=== PATIENT | male | born 1955 | race Caucasian/White ===

== ENCOUNTER → 2016-06-30 | Outpatient (CLI) | payer MEDICARE, MEDICAID ==
[~2016-06-30] VITALS: Ht 167.6 cm; Wt 73.4 kg
[~2016-06-30] MED LIST: ABIL5TAB5 PO; BISAPOW4 PO; BONI150T PO; CALCTAB41 PO; COLA100C3 PO; DOCU60SY2 PO; FLEEENE4 PR; FLOM5CAP PO; KLON1TAB PO; LAMI1TAB7 PO; LIDOCAINE 2% INJ 100 MG/5 ML SDV (FOR ANES.) As Ordered ONE; MILKSUS PO; MIRA33504 PO; MULTCAP11 PO; PROPOFOL 200 MG/20 ML VIAL As Ordered ONE; SING10TA32 PO; TYLE325T5 PO; UROCTAB2 PO; ZOLO50TA PO; ZYPR10TA PO; [UNRECOGNIZED DRUG - CODE] PO
--- NOTE | 2016-06-30 08:47 | ROOR ---
Patient Name: Hola Connell Procedure Date: 06/30/2016 7:17 AM Date of : 1955 Age: 60 Room: [facility] Gender: Male Note Status: Finalized Procedure: Colonoscopy Indications: High risk colon cancer surveillance: Personal history of colonic polyps Providers: Harman Daly MD Referring MD: Kwan Ravi MD Requesting Provider: Medicines: Monitored Anesthesia Care Complications: No immediate complications. Estimated blood loss: Minimal. Procedure: Pre-Anesthesia Assessment: - Prior to the procedure, a History and Physical was performed, and patient medications and allergies were reviewed. The patient is unable to give consent secondary to the patient being legally incompetent to consent. The risks and benefits of the procedure and the sedation options and risks were discussed with the patient's guardian. All questions were answered and informed consent was obtained. Patient identification and proposed procedure were verified by the physician, the nurse and the anesthesiologist in the procedure room. Mental Status Examination: alert but confused. Airway Examination: normal oropharyngeal airway and neck mobility. Respiratory Examination: clear to auscultation. CV Examination: normal. Prophylactic Antibiotics: The patient does not require prophylactic antibiotics. Prior Anticoagulants: The patient has taken no previous anticoagulant or antiplatelet agents. ASA Grade Assessment: II - A patient with mild systemic disease. After reviewing the risks and benefits, the patient was deemed in satisfactory condition to undergo the procedure. The anesthesia plan was to use monitored anesthesia care (MAC). Immediately prior to administration of medications, the patient was re-assessed for adequacy to receive sedatives. The heart rate, respiratory rate, oxygen saturations, blood pressure, adequacy of pulmonary ventilation, and response to care were monitored throughout the procedure. The physical status of the patient was re-assessed after the procedure. The Colonoscope was introduced through the anus and advanced to the cecum, identified by appendiceal orifice and ileocecal valve. The colonoscopy was technically difficult and complex due to poor bowel prep with stool present, poor endoscopic visualization and significant looping. The patient tolerated the procedure well. The quality of the bowel preparation was poor. Findings: The perianal and digital rectal examinations were normal. A diminutive polyp was found in the cecum. The polyp was flat. The polyp was removed with a jumbo cold forceps. Resection and retrieval were complete. Estimated blood loss was minimal. A 3 to 5 mm polyp was found in the ascending colon. The polyp was semi-pedunculated. The polyp was removed with a hot snare. Resection and retrieval were complete. Estimated blood loss: none. A 3 to 5 mm polyp was found in the hepatic flexure. The polyp was pedunculated. The polyp was removed with a hot snare. Resection and retrieval were complete. Estimated blood loss: none. A 3 to 5 mm polyp was found in the descending colon. The polyp was semi-pedunculated. The polyp was removed with a hot snare. Resection and retrieval were complete. Estimated blood loss: none. A 15 mm polyp was found in the descending colon. The polyp was sessile. The polyp was removed with a hot snare. Polyp resection was incomplete. The resected tissue was retrieved. Estimated blood loss: 5 mL requiring treatment with placement of hemostatic clip(s). No additional abnormalities were found on retroflexion. Impression: - Preparation of the colon was poor. - One diminutive polyp in the cecum, removed with a jumbo cold forceps. Resected and retrieved. - One 3 to 5 mm polyp in the ascending colon, removed with a hot snare. Resected and retrieved. - One 3 to 5 mm polyp at the hepatic flexure, removed with a hot snare. Resected and retrieved. - One 3 to 5 mm polyp in the descending colon, removed with a hot snare. Resected and retrieved. - One 15 mm polyp in the descending colon, removed with a hot snare. Incomplete resection. Resected tissue retrieved. Recommendation: - Discharge patient to home (ambulatory). - Telephone my office for pathology results in 2 weeks. - Repeat colonoscopy in 1 year for surveillance after piecemeal polypectomy. Harman Daly MD Harman Daly MD 06/30/2016 8:46:55 AM This report has been signed electronically. Number of Addenda: 0 Note Initiated On: 06/30/2016 7:17 AM Estimated Blood Loss: Estimated blood loss was minimal.
[2016-06-30 09:10] VITALS: BP 119/70
== END | disposition home or self-care (01) ==
LOC: M OPP 06:42
PROVIDERS: ATTEND Surgery
DX: Z12.11 Encounter for screening for malignant neoplasm of colon (principal); D12.0 Benign neoplasm of cecum; D12.2 Benign neoplasm of ascending colon; D12.3 Benign neoplasm of transverse colon; D12.4 Benign neoplasm of descending colon; Z86.010 Personal history of colon polyps; K59.00 Constipation, unspecified; M25.9 Joint disorder, unspecified; M81.0 Age-related osteoporosis without current pathological fracture; Z87.828 Personal history of other (healed) physical injury and trauma; R13.10 Dysphagia, unspecified; R56.9 Unspecified convulsions; Z87.442 Personal history of urinary calculi; R31.9 Hematuria, unspecified; N40.0 Benign prostatic hyperplasia without lower urinary tract symptoms; Z88.8 Allergy status to other drugs, medicaments and biological substances; Z79.899 Other long term (current) drug therapy

== ENCOUNTER 2016-07-30 23:56 | Emergency (ER) | payer MEDICARE, MEDICAID ==
[~2016-07-30 23:56] MED LIST changes: -LIDOCAINE 2% INJ 100 MG/5 ML SDV (FOR ANES.) As Ordered ONE; -PROPOFOL 200 MG/20 ML VIAL As Ordered ONE
[2016-07-31] MEDS ORDERED: TETANUS/DIPHTHERIA TOX ADSORB ADULT 0.5ML SYR/VIAL (90714) IM ONE (00:30)
--- NOTE | 2016-07-31 01:10 | REPUSA ---
CLINICAL HISTORY: Trauma. TECHNIQUE: Multiple axial CT images were obtained through the brain without IV contrast material. COMMENTS: There is normal configuration of sella turcica. There are no intra or extra-axial collections. There is no mass effect or midline shift. There is no evidence of hematoma formation. No hydrocephalus is p resent. The ventricles are symmetrical. No abnormal calcifications are present. There is diffuse age-appropriate cerebellar and cerebral atrophy with proportionally dilated ventricl es and cortical sulci. There are bilateral periventricular and subcortical white matter hypolucencies compatible with mild c hronic microvascular disease. Otherwise, no significant focal abnormalities are seen either in the posterior fossa or supratentoria l compartment. Air-fluid level in the left sphenoid sinus. IMPRESSION: 1. Age-appropriate cerebellar and cerebral atrophy. 2. Mild chronic microvascular disease. 3. No evidence of acute intracranial pathology. Thank you for your kind referral of this patient.
--- NOTE | 2016-07-31 01:10 | REPUSA ---
HISTORY: Trauma. TECHNIQUE: Computerized tomography of the facial bones without the use of intravenous contrast materi al obtained in axial and coronal planes. COMMENTS: There is no fracture or dislocation. Air-fluid level in the left sphenoid sinus. Periorbital soft tissues are intact. The globes of the eyes disclose bilaterally symmetrical size and shape and normal appearance of the v arious layers. The intraocular lenses and the vitreous are unremarkable. The orbits show bilaterally symmetrical shape. The orbital fat and the intraorbital portions of the optic nerves are bilaterally symmetric and normal in size, shape and course. The extraocular muscles are unremarkable. IMPRESSION: No fracture. Air-fluid level in the left sphenoid sinus. Thank you for your kind referral of this patient.
[2016-07-31] MEDS ORDERED: DERMABOND TOPICAL SKIN ADHESIVE TOP ONE (01:45)
[2016-07-31 02:12] VITALS: BP 173/91
--- NOTE | 2016-07-31 07:45 | REP ---
Clinical: Trauma . Comparison: 08/10/2015 . Findings: The mediastinum and cardiac silhouette are stable and within normal limits for portable technique. The lung giles demonstrate chronic changes without acute consolidation, effusion, or pneumothorax. Skeletal structures are intact with degenerative changes noted to the thoracic spine and bilateral shoulders. Impression: Stable chest x-ray. No obvious acute cardiopulmonary process. Signed by Rob Shea MD 07/31/2016 07:37 A
--- NOTE | 2016-07-31 07:47 | REP ---
Clinical: Trauma. Technique: Single neutral view of the right shoulder. Comparison: 12/04/2007. Findings: Age-related and post traumatic arthritic degenerative changes are appreciated involving the shoulder and predominantly the visualized humerus and glenoid. No obvious acute fracture or dislocation. Impression: Chronic changes similar to prior examination. No obvious acute fracture or dislocation noted on single view. Signed by Rob Shea MD 07/31/2016 07:38 A
== END 2016-07-31 02:19 | disposition home or self-care (01) ==
LOC: EDBD 23:56 → M ED 07-31 01:09
DX: S01.81XA Laceration without foreign body of other part of head, initial encounter (principal); M19.011 Primary osteoarthritis, right shoulder; W19.XXXA Unspecified fall, initial encounter; Y92.198 Other place in other specified residential institution as the place of occurrence of the external cause; Y93.89 Activity, other specified; Y99.8 Other external cause status; G40.909 Epilepsy, unspecified, not intractable, without status epilepticus; F79 Unspecified intellectual disabilities; Z79.899 Other long term (current) drug therapy; Z88.8 Allergy status to other drugs, medicaments and biological substances

== ENCOUNTER 2016-11-23 20:32 | Emergency (ER) | payer MEDICARE, MEDICAID ==
[~2016-11-23 20:32] MED LIST changes: +ABIL1TAB11 PO; -ABIL5TAB5 PO; -COLA100C3 PO; +COLA100C5 PO
[2016-11-23 20:54] VITALS: BP 180/87
[2016-11-23] MEDS ORDERED: KETOROLAC 60 MG/2 ML VIAL (J1885) IM ONE (21:45)
--- NOTE | 2016-11-24 08:03 | REP ---
Right ribs and PA chest: Right ribs four views: There is no rib fracture or other rib abnormality. PA chest: Comparison is 07/31/2016. There is no pneumothorax, hemothorax or pulmonary. Lung giles are clear and unchanged. Cardiac size is normal. The luis manuel, mediastinum, and bony thorax are unremarkable. Impression: Negative PA chest. Signed by Crispin Quan MD 11/24/2016 07:55 A
== END 2016-11-23 22:11 | disposition home or self-care (01) ==
LOC: M ED 20:32 → EDBD 20:32 → M ED 22:11
DX: S20.212A Contusion of left front wall of thorax, initial encounter (principal); W01.0XXA Fall on same level from slipping, tripping and stumbling without subsequent striking against object, initial encounter; Y92.198 Other place in other specified residential institution as the place of occurrence of the external cause; Y93.01 Activity, walking, marching and hiking; Y99.8 Other external cause status; G40.909 Epilepsy, unspecified, not intractable, without status epilepticus; K21.9 Gastro-esophageal reflux disease without esophagitis; F81.9 Developmental disorder of scholastic skills, unspecified; R26.89 Other abnormalities of gait and mobility; Z88.8 Allergy status to other drugs, medicaments and biological substances; Z79.899 Other long term (current) drug therapy
CPT/HCPCS: 71101; 96372; 99282; J1885

== ENCOUNTER 2017-03-03 20:29 | Emergency (ER) | payer MEDICARE, MEDICAID ==
[2017-03-03] MEDS ORDERED: LIDOCAINE 1% MDV 20ML VIAL (20:30)
== END 2017-03-03 21:29 | disposition home or self-care (01) ==
LOC: M ED 20:29
DX: S01.119A Laceration without foreign body of unspecified eyelid and periocular area, initial encounter (principal); W01.198A Fall on same level from slipping, tripping and stumbling with subsequent striking against other object, initial encounter; Y92.10 Unspecified residential institution as the place of occurrence of the external cause; J45.909 Unspecified asthma, uncomplicated; Z79.899 Other long term (current) drug therapy; Z88.8 Allergy status to other drugs, medicaments and biological substances
CPT/HCPCS: 12013

== ENCOUNTER 2017-06-18 13:35 | Emergency (ER) | payer MEDICARE, MEDICAID ==
[2017-06-18] MEDS: LIDOCAINE 2% W/EPIN INJ 20ML **PRES FREE INJ (14:40)
== END 2017-06-18 15:27 | disposition home or self-care (01) ==
LOC: M ED 13:35
DX: S01.112A Laceration without foreign body of left eyelid and periocular area, initial encounter (principal); S00.01XA Abrasion of scalp, initial encounter; R04.0 Epistaxis; W01.0XXA Fall on same level from slipping, tripping and stumbling without subsequent striking against object, initial encounter; Y92.481 Parking lot as the place of occurrence of the external cause; Y93.9 Activity, unspecified; Z79.899 Other long term (current) drug therapy; Z88.8 Allergy status to other drugs, medicaments and biological substances
CPT/HCPCS: 70450

== ENCOUNTER 2017-06-28 16:24 | Emergency (ER) | payer MEDICARE, MEDICAID ==
[2017-06-28] MEDS: ASPIRIN 81 MG CHEW TABLET PO (17:00)
[2017-06-28 17:43] LABS: BASO % 0.1 % (0.0-1.0); EOS # 0.1 10^3/uL (0.0-0.50); HEMATOCRIT 36.9 % (42.0-52.0); HEMOGLOBIN 12.3 g/dl (13.5-17.5); IMMATURE GRANULOCYTE % 0.4 % (0-3.0); LYMPH % 9.9 % (24.0-44.0); MEAN CORPUSCULAR HEMOGLOBIN 31.2 pg (27.0-33.0); MEAN CORPUSCULAR HGB CONC 33.3 g/dl (32.0-36.5); MEAN CORPUSCULAR VOLUME 93.7 fl (80.0-96.0); MONO # 1.1 10^3/uL (0.0-0.8); MONO % 10.8 % (0.0-5.0); NEUTROPHILS # 8.2 10^3/uL (1.8-7.7); NEUTROPHILS % 77.8 % (36.0-66.0); PLATELET COUNT, AUTOMATED 252 10^3/uL (150-450); RED BLOOD COUNT 3.94 10^6/uL (4.30-6.10); RED CELL DISTRIBUTION WIDTH 12.8 % (11.5-14.5); WHITE BLOOD COUNT 10.5 10^3/uL (4.0-10.0)
[2017-06-28 18:26] LABS: ANION GAP 4 MEQ/L (8-16); BLOOD UREA NITROGEN 15 MG/DL (7-18); CALCIUM LEVEL 9.2 MG/DL (8.8-10.2); CARBON DIOXIDE LEVEL 29 MEQ/L (21-32); CHLORIDE LEVEL 104 MEQ/L (98-107); CK-MB VALUE MASS < 1.0 NG/ML (<3.6); CPK CREATINE PHOSPHOKINASE 59 U/L (39-308); CREATININE FOR GFR 0.78 MG/DL (0.70-1.30); GLOMERULAR FILTRATION RATE > 60.0 (>49); GLUCOSE, FASTING 96 MG/DL (70-100); LIPASE 83 U/L (73-393); MB/CK RELATIVE INDEX 1.69 (< OR =4); NT-PRO BNP 133 PG/ML (<125); POTASSIUM SERUM 4.1 MEQ/L (3.5-5.1); SODIUM LEVEL 137 MEQ/L (136-145); TROPONIN I < 0.02 NG/ML (< 0.10)
[2017-06-28 22:21] LABS: CK-MB VALUE MASS 1.1 NG/ML (<3.6); CPK CREATINE PHOSPHOKINASE 40 U/L (39-308); MB/CK RELATIVE INDEX 2.75 (< OR =4); TROPONIN I < 0.02 NG/ML (< 0.10)
== END 2017-06-28 22:31 | disposition home or self-care (01) ==
LOC: M ED 16:24
DX: R07.89 Other chest pain (principal); I45.10 Unspecified right bundle-branch block; Z88.8 Allergy status to other drugs, medicaments and biological substances; N40.0 Benign prostatic hyperplasia without lower urinary tract symptoms; R56.9 Unspecified convulsions; Z79.899 Other long term (current) drug therapy
CPT/HCPCS: 71045

== ENCOUNTER 2017-07-17 20:12 | Emergency (ER) | payer MEDICARE, MEDICAID ==
[2017-07-17] MEDS: LIDOCAINE W/EPINEPHRINE 1% 20ML VIAL SC (21:15)
== END 2017-07-17 22:32 | disposition home or self-care (01) ==
LOC: M ED 20:12
DX: S01.81XA Laceration without foreign body of other part of head, initial encounter (principal); S40.012A Contusion of left shoulder, initial encounter; W01.10XA Fall on same level from slipping, tripping and stumbling with subsequent striking against unspecified object, initial encounter; Y92.9 Unspecified place or not applicable; Y93.9 Activity, unspecified; Y99.9 Unspecified external cause status; M85.812 Other specified disorders of bone density and structure, left shoulder; F79 Unspecified intellectual disabilities; Z79.899 Other long term (current) drug therapy; Z88.8 Allergy status to other drugs, medicaments and biological substances
CPT/HCPCS: 73030

== ENCOUNTER 2017-11-02 12:10 | Day surgery (SDC) | payer MEDICARE, MEDICAID | END 2017-11-02 15:10 | disposition home or self-care (01) | LOC: M OPP 12:10 | DX: Z09 Encounter for follow-up examination after completed treatment for conditions other than malignant neoplasm (principal); D49.0 Neoplasm of unspecified behavior of digestive system; Z86.010 Personal history of colon polyps; D12.3 Benign neoplasm of transverse colon; D12.2 Benign neoplasm of ascending colon; K64.8 Other hemorrhoids; K63.89 Other specified diseases of intestine; F70 Mild intellectual disabilities; K59.00 Constipation, unspecified; K21.9 Gastro-esophageal reflux disease without esophagitis; R12 Heartburn; G82.50 Quadriplegia, unspecified; F41.9 Anxiety disorder, unspecified; F32.9 Major depressive disorder, single episode, unspecified; R26.89 Other abnormalities of gait and mobility; M19.90 Unspecified osteoarthritis, unspecified site; M81.0 Age-related osteoporosis without current pathological fracture; F63.9 Impulse disorder, unspecified; R56.9 Unspecified convulsions; R39.89 Other symptoms and signs involving the genitourinary system; Z88.8 Allergy status to other drugs, medicaments and biological substances; Z79.899 Other long term (current) drug therapy; Z80.3 Family history of malignant neoplasm of breast; Z80.6 Family history of leukemia | CPT/HCPCS: 45385 ==

== ENCOUNTER 2018-01-02 12:47 | Emergency (ER) | payer MEDICARE, MEDICAID ==
[2018-01-02] MEDS: NORCO, ANEXSIA 5/325MG TABLET (HYDROcodone/ACETAMINOPHEN) PO (13:43)
== END 2018-01-02 16:37 | disposition home or self-care (01) ==
LOC: M ED 12:47
DX: S00.03XA Contusion of scalp, initial encounter (principal); T14.8XXA Other injury of unspecified body region, initial encounter; W19.XXXA Unspecified fall, initial encounter; Y92.099 Unspecified place in other non-institutional residence as the place of occurrence of the external cause; Y93.9 Activity, unspecified; Y99.9 Unspecified external cause status; M47.812 Spondylosis without myelopathy or radiculopathy, cervical region; M25.78 Osteophyte, vertebrae; Z79.899 Other long term (current) drug therapy; Z88.8 Allergy status to other drugs, medicaments and biological substances
CPT/HCPCS: 72110

== ENCOUNTER → 2018-01-18 | Outpatient (CLI) | payer MEDICARE, MEDICAID ==
[2018-01-18 09:01] LABS: EOS # 0.2 10^3/uL (0.0-0.50); EOS % 1.9 % (0.0-3.0); HEMATOCRIT 39.5 % (42.0-52.0); HEMOGLOBIN 12.8 g/dl (13.5-17.5); IMMATURE GRANULOCYTE % 0.5 % (0-3.0); LYMPH # 1.6 10^3/uL (1.5-4.5); LYMPH % 20.3 % (24.0-44.0); MEAN CORPUSCULAR HEMOGLOBIN 31.6 pg (27.0-33.0); MEAN CORPUSCULAR HGB CONC 32.4 g/dl (32.0-36.5); MEAN CORPUSCULAR VOLUME 97.5 fl (80.0-96.0); MONO # 0.6 10^3/uL (0.0-0.8); NEUTROPHILS # 5.7 10^3/uL (1.8-7.7); NEUTROPHILS % 70.3 % (36.0-66.0); PLATELET COUNT, AUTOMATED 296 10^3/uL (150-450); RED BLOOD COUNT 4.05 10^6/uL (4.30-6.10); RED CELL DISTRIBUTION WIDTH 12.9 % (11.5-14.5)
[2018-01-18 09:33] LABS: CHOLESTEROL LEVEL 176 MG/DL (<200); CHOLESTEROL RISK RATIO 3.744 (<5); HDL CHOLESTEROL 47 MG/DL (>40); LDL CHOLESTEROL 81 MG/DL (<100); NON-HDL-C 129 MG/DL; TRIGLYCERIDES LEVEL 240 MG/DL (<150)
[2018-01-18 09:41] LABS: PROLACTIN 8.6 NG/ML (2.1-17.7)
[2018-01-18 11:30] LABS: ESTIMATED AVERAGE GLUCOSE 111 MG/DL (60-110); HEMOGLOBIN A1c 5.5 %
== END ==
LOC: M LAB 07:42
DX: F63.81 Intermittent explosive disorder (principal); Z79.899 Other long term (current) drug therapy
CPT/HCPCS: 84146

== ENCOUNTER → 2018-05-05 | Outpatient (REF) | payer MEDICARE, MEDICAID ==
[~2018-05-05] MED LIST changes: +CVS8.6TA5 PO; +FLOM0.4C39 PO; -FLOM5CAP PO; +HYDR-3363 PO; +MILK120011 PO; -MILKSUS PO; +MULT1TAB18 PO; +NAPR-50 PO; +TYLE500T78 PO; -[UNRECOGNIZED DRUG - CODE] PO
[2018-05-05 18:27] LABS: FOLATE 20.8 NG/ML
== END ==
LOC: M LAB REF 17:23
PROVIDERS: ATTEND Family Medicine
DX: D64.9 Anemia, unspecified (principal)

== ENCOUNTER → 2018-09-18 | Outpatient (REF) | payer MEDICARE, MEDICAID ==
[~2018-09-18] MED LIST changes: -BONI150T PO; +BONI1TAB PO; -CVS8.6TA5 PO; -NAPR-50 PO; +NAPR-837 PO; +SENN-85 PO
[2018-09-18 13:13] LABS: BASO % 0.4 % (0.0-1.0); EOS # 0.1 10^3/uL (0.0-0.50); EOS % 0.6 % (0.0-3.0); HEMATOCRIT 38.9 % (42.0-52.0); HEMOGLOBIN 12.6 g/dl (13.5-17.5); LYMPH # 1.8 10^3/uL (1.5-4.5); LYMPH % 19.7 % (24.0-44.0); MEAN CORPUSCULAR HEMOGLOBIN 30.8 pg (27.0-33.0); MEAN CORPUSCULAR HGB CONC 32.4 g/dl (32.0-36.5); MEAN CORPUSCULAR VOLUME 95.1 fl (80.0-96.0); MONO # 0.8 10^3/uL (0.0-0.8); MONO % 8.7 % (0.0-5.0); NEUTROPHILS # 6.5 10^3/uL (1.8-7.7); NEUTROPHILS % 70.3 % (36.0-66.0); PLATELET COUNT, AUTOMATED 305 10^3/uL (150-450); RED BLOOD COUNT 4.09 10^6/uL (4.30-6.10); WHITE BLOOD COUNT 9.3 10^3/uL (4.0-10.0)
[2018-09-18 13:48] LABS: ALBUMIN 3.8 GM/DL (3.2-5.2); ALT/SGPT 24 U/L (12-78); BILIRUBIN,TOTAL 0.4 MG/DL (0.2-1.0); BLOOD UREA NITROGEN 14 MG/DL (7-18); CALCIUM LEVEL 9.7 MG/DL (8.8-10.2); CARBON DIOXIDE LEVEL 29 MEQ/L (21-32); CHLORIDE LEVEL 104 MEQ/L (98-107); CREATININE FOR GFR 0.79 MG/DL (0.70-1.30); GLOMERULAR FILTRATION RATE > 60.0 (>49); GLUCOSE, FASTING 86 MG/DL (70-100); POTASSIUM SERUM 4.3 MEQ/L (3.5-5.1); SODIUM LEVEL 140 MEQ/L (136-145); TOTAL PROTEIN 7.7 GM/DL (6.4-8.2)
== END ==
LOC: M LABNEURO 10:57
PROVIDERS: ATTEND Psychiatry & Neurology Neurology
DX: R56.9 Unspecified convulsions (principal)

== ENCOUNTER 2018-12-19 09:42 | Emergency (ER) | payer MEDICARE, MEDICAID ==
--- NOTE | 2018-12-19 11:03 | REP ---
CT brain: 12/19/2018. Indication: Head trauma. Comparison: 01/02/2019. Technique: Unenhanced axial images of the brain were obtained from skull base to vertex. Findings: There is no acute intracranial hemorrhage, acute cortical infarction, mass effect, hydrocephalus or acute calvarial fracture. Mild diffuse volume loss is present. 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 Impression: No acute intracranial process. Electronically Signed by Isac Sykes DO 12/19/2018 10:55 A
--- NOTE | 2018-12-19 11:11 | REP ---
CT cervical spine: 12/19/2018. Indication: Cervical spine trauma. Comparison: 01/02/2019. Findings: There is no acute fracture, subluxation or dislocation. There is exaggeration of the cervical lordosis. Multilevel degenerative changes are present with the greatest narrowing of the spinal canal at C3/C4 and C4/C5 with flattening of the ventral cord. There is a subcentimeter lucency within the superior aspect of C5 along the superior endplate most likely representing a cyst. Stable. There is no hemorrhage within the spinal canal. Impression: No acute post traumatic injuries of the cervical spine. Electronically Signed by Isac Sykes DO 12/19/2018 11:02 A
--- NOTE | 2018-12-19 11:43 | REP ---
Left shoulder: Three views. History: Injury in a fall. Comparison left shoulder radiographs are from July 17, 2017. Findings: The left glenohumeral and acromioclavicular joints are normally aligned. No fracture is seen. There is mild AC joint spurring. This is unchanged. Periarticular soft tissues are unremarkable. There is no visible fracture or subluxation. Impression: Mild AC joint spurring. No fracture or subluxation seen. Electronically Signed by Chidi Meek MD 12/19/2018 06:44 P
--- NOTE | 2018-12-19 11:45 | REP ---
Pelvis right hip: Three views. History: Injury in a fall. Findings: AP view of the pelvis shows an intact bony pelvic ring. The patient is rotated somewhat to the left. There is osteoarthritis of the hips bilaterally but no hip fracture is appreciated. There is also tendon insertion site spurring on the greater and lesser trochanters. Degenerative disc disease is seen at L4-5 in the lumbar spine. The bowel gas pattern is unremarkable. AP and frog-leg views of the right hip show osteoarthritis and trochanteric tendon insertion site spurring. Impression: No acute bony abnormality. Electronically Signed by Chidi Meek MD 12/19/2018 06:44 P
[2018-12-19] MEDS ORDERED: ACETAMINOPHEN TAB 650MG DOSE (2X325MG) PO ONE (12:45)
[2018-12-19 12:51] VITALS: BP 167/81
== END 2018-12-19 13:07 | disposition home or self-care (01) ==
LOC: EDBD 09:42 → M ED 09:42
DX: S70.01XA Contusion of right hip, initial encounter (principal); S40.012A Contusion of left shoulder, initial encounter; X58.XXXA Exposure to other specified factors, initial encounter; Y92.091 Bathroom in other non-institutional residence as the place of occurrence of the external cause; Y93.89 Activity, other specified; Y99.9 Unspecified external cause status; N40.0 Benign prostatic hyperplasia without lower urinary tract symptoms; R56.9 Unspecified convulsions; Z79.899 Other long term (current) drug therapy; Z88.8 Allergy status to other drugs, medicaments and biological substances

== ENCOUNTER → 2019-03-23 | Outpatient (CLI) | payer MEDICARE, MEDICAID ==
--- NOTE | 2019-03-23 21:00 | REP ---
COOKIE SWALLOW The procedure was performed under the direct supervision of Dr. Meek. The procedure was performed with Merissa Bell from speech pathology present. 5 ml aliquots of thin, pudding, mixed fruit, nectar, honey and puree consistency barium was administered. There is laryngeal penetration with all consistency barium except mixed fruit. The detailed report of this examination will be provided by speech pathology. 1.4 minutes of fluoroscopy time was utilized for this procedure. Electronically Signed by ESTEFANI Banda 03/23/2019 03:33 P Electronically Signed by Chidi Meek MD 03/23/2019 08:43 P
== END ==
LOC: M ST 13:54
PROVIDERS: ATTEND Internal Medicine
DX: R13.10 Dysphagia, unspecified (principal)

== ENCOUNTER → 2019-04-03 | Outpatient (CLI) | payer MEDICARE, MEDICAID ==
--- NOTE | 2019-04-04 08:29 | REP ---
RIGHT HAND THREE VIEWS: Three views of the right hand performed. The study is extremely limited as the fingers are in a flexed position and the patient is unable to straightened the 2nd through 5th digits. No definite fracture or dislocation is seen. Electronically Signed by Crispin Silva MD 04/04/2019 10:45 P
== END ==
LOC: M ADAMS 18:23
PROVIDERS: ATTEND Nurse Practitioner Family
DX: M79.641 Pain in right hand (principal)

== ENCOUNTER → 2020-03-26 | Outpatient (CLI) | payer MEDICARE, MEDICAID ==
[~2020-03-26] MED LIST changes: +ACET-841 PO; +CALC600C3 PO; +INGR80CA PO; +MIRA3350 PO; +VITMTA PO; +XALA0.007 OU
== END ==
LOC: M LABSMTC 11:16
PROVIDERS: ATTEND Anesthesiology
DX: Z01.812 Encounter for preprocedural laboratory examination (principal); Z20.828 Contact with and (suspected) exposure to other viral communicable diseases

== ENCOUNTER → 2020-05-14 | Outpatient (CLI) | payer MEDICARE, MEDICAID | LOC: M LABSMTC 10:52 | PROVIDERS: ATTEND Anesthesiology | DX: Z01.812 Encounter for preprocedural laboratory examination (principal); Z20.822 Contact with and (suspected) exposure to COVID-19 ==

== ENCOUNTER 2020-05-19 07:56 | Day surgery (SDC) | payer MEDICARE, MEDICAID ==
[~2020-05-19] VITALS: Ht 167.6 cm; Wt 73.0 kg
[~2020-05-19 07:56] MED LIST changes: +NS 1,000 ML IV ONE
[2020-05-19] MEDS ORDERED: LIDOCAINE 2% 100MG/5ML SDV (FOR ANES.) As Ordered ONE (08:44)
[2020-05-19] MEDS ORDERED: propofoL 500 MG/50 ML VIAL As Ordered ONE (08:44)
--- NOTE | 2020-05-19 09:00 | ROOR ---
Patient Name: Hola Connell Procedure Date: 05/19/2020 8:39 AM Date of : 1955 Age: 64 Room: [facility] Gender: Male Note Status: Finalized Procedure: Colonoscopy to 50 cms-POOR PREP Indications: High risk colon cancer surveillance: Personal history of colonic polyps, Last colonoscopy: 2014 Providers: Sameer Lundberg MD Referring MD: Kwan Ravi MD Requesting Provider: Medicines: Monitored Anesthesia Care Complications: No immediate complications. Procedure: Pre-Anesthesia Assessment: - The heart rate, respiratory rate, oxygen saturations, blood pressure, adequacy of pulmonary ventilation, and response to care were monitored throughout the procedure. The Colonoscope was introduced through the anus with the intention of advancing to the cecum. The scope was advanced to the sigmoid colon before the procedure was aborted. Medications were given. The colonoscopy was performed without difficulty. The patient tolerated the procedure well. The quality of the bowel preparation was inadequate. Findings: The perianal and digital rectal examinations were normal. A large amount of stool was found in the rectum, in the recto-sigmoid colon and in the descending colon, making visualization difficult. The entire examined colon appeared normal. Impression: - Preparation of the colon was inadequate. - Stool in the rectum, in the recto-sigmoid colon and in the descending colon. - The entire examined colon is normal. - No specimens collected. Recommendation: - Patient has a contact number available for emergencies. The signs and symptoms of potential delayed complications were discussed with the patient. Return to normal activities tomorrow. Written discharge instructions were provided to the patient. - Discharge patient to home. - Resume previous diet. - Repeat colonoscopy at appointment to be scheduled because the bowel preparation was poor. - Return to referring physician. - The findings and recommendations were discussed with the patient. Procedure Code(s): --- Professional --- G0105, 53, Colorectal cancer screening; colonoscopy on individual at high risk Diagnosis Code(s): --- Professional --- Z86.010, Personal history of colonic polyps CPT copyright 2019 [employer]. All rights reserved. The codes documented in this report are preliminary and upon glass bulb machine adjuster review may be revised to meet current compliance requirements. Sameer Lundberg MD Sameer Lundberg MD 05/19/2020 8:59:44 AM Electronically signed by Sameer Lundberg MD Number of Addenda: 0 Note Initiated On: 05/19/2020 8:39 AM Estimated Blood Loss: Estimated blood loss: none.
[2020-05-19 09:20] VITALS: BP 220/114
== END 2020-05-19 09:35 | disposition home or self-care (01) ==
LOC: M OPP 07:56
PROVIDERS: ATTEND Internal Medicine Gastroenterology
DX: Z12.11 Encounter for screening for malignant neoplasm of colon (principal); Z86.010 Personal history of colon polyps; Z79.899 Other long term (current) drug therapy; Z88.8 Allergy status to other drugs, medicaments and biological substances

== ENCOUNTER → 2020-07-23 | Outpatient (CLI) | payer MEDICARE, MEDICAID ==
[~2020-07-23] MED LIST changes: -NS 1,000 ML IV ONE
== END ==
LOC: M LABSMTC 10:28
PROVIDERS: ATTEND Anesthesiology
DX: Z01.818 Encounter for other preprocedural examination (principal); Z11.59 Encounter for screening for other viral diseases

== ENCOUNTER 2020-07-28 07:51 | Day surgery (SDC) | payer MEDICARE, MEDICAID ==
[~2020-07-28] VITALS: Ht 167.6 cm; Wt 73.5 kg
[~2020-07-28 07:51] MED LIST changes: +NS 1,000 ML IV ONE
[2020-07-28] MEDS ORDERED: LIDOCAINE 2% 100MG/5ML SDV (FOR ANES.) As Ordered ONE (09:00)
[2020-07-28] MEDS ORDERED: propofoL 500 MG/50 ML VIAL As Ordered ONE (09:00)
--- NOTE | 2020-07-28 09:24 | ROOR ---
Patient Name: Hola Connell Procedure Date: 07/28/2020 8:56 AM Date of : 1955 Age: 64 Room: [facility] Gender: Male Note Status: Finalized Procedure: Total Colonoscopy to Cecum Indications: High risk colon cancer surveillance: Personal history of colonic polyps, Last colonoscopy: 2014 Providers: Sameer Lundberg MD Referring MD: Kwan Ravi MD Requesting Provider: Medicines: Monitored Anesthesia Care Complications: No immediate complications. Procedure: Pre-Anesthesia Assessment: - The heart rate, respiratory rate, oxygen saturations, blood pressure, adequacy of pulmonary ventilation, and response to care were monitored throughout the procedure. The Colonoscope was introduced through the anus and advanced to the cecum, identified by appendiceal orifice and ileocecal valve. The colonoscopy was performed without difficulty. The patient tolerated the procedure well. The quality of the bowel preparation was poor. Findings: The perianal and digital rectal examinations were normal. Extensive amounts of stool was found in the entire colon, interfering with visualization. Lavage of the area was performed, resulting in incomplete clearance with continued poor visualization. The exam was otherwise without abnormality. Impression: - Preparation of the colon was poor. - Stool in the entire examined colon. - The examination was otherwise normal. - No specimens collected. - The examination was otherwise normal. Recommendation: - Patient has a contact number available for emergencies. The signs and symptoms of potential delayed complications were discussed with the patient. Return to normal activities tomorrow. Written discharge instructions were provided to the patient. - Discharge patient to home. - Continue present medications. - Repeat colonoscopy in 3 years for surveillance. - Return to referring physician. - The findings and recommendations were discussed with the patient's family. Procedure Code(s): --- Professional --- G0105, Colorectal cancer screening; colonoscopy on individual at high risk Diagnosis Code(s): --- Professional --- Z86.010, Personal history of colonic polyps CPT copyright 2019 [employer]. All rights reserved. The codes documented in this report are preliminary and upon professional fee coder review may be revised to meet current compliance requirements. Sameer Lundberg MD Sameer Lundberg MD 07/28/2020 9:23:31 AM Electronically signed by Sameer Lundberg MD Number of Addenda: 0 Note Initiated On: 07/28/2020 8:56 AM Estimated Blood Loss: Estimated blood loss: none.
[2020-07-28 09:50] VITALS: BP 149/77
== END 2020-07-28 10:14 | disposition home or self-care (01) ==
LOC: M OPP 07:51
PROVIDERS: ATTEND Internal Medicine Gastroenterology
DX: Z12.11 Encounter for screening for malignant neoplasm of colon (principal); Z86.010 Personal history of colon polyps; M19.90 Unspecified osteoarthritis, unspecified site; M81.0 Age-related osteoporosis without current pathological fracture; Z88.8 Allergy status to other drugs, medicaments and biological substances; Z79.899 Other long term (current) drug therapy

== ENCOUNTER → 2020-08-08 | Outpatient (CLI) | payer MEDICARE, MEDICAID ==
[~2020-08-08] MED LIST changes: -NS 1,000 ML IV ONE
--- NOTE | 2020-08-08 15:44 | REP ---
INDICATION: R13.10 dysphagia. COMPARISON: None. TECHNIQUE: The procedure was performed by Pauline Hidalgo [facility], under the direct supervision of Dr. Silva. The procedure was performed with Torrie Thomas from speech pathology present. 5 ml aliquots of thin, pudding, soft food, nectar thick and honey thick consistency barium was administered. FINDINGS: Both penetration and aspiration were visualized during the exam. The detailed report of this examination will be provided by speech pathology. IMPRESSION: Penetration and aspiration were visualized during the exam, a detailed report will be provided by speech pathology. 3.8 minutes of fluoroscopy time was utilized for this procedure. Some fluoroscopic images are performed with last image hold technology. These images require no additional radiation <Electronically signed by Pauline Hidalgo > 08/08/20 [id number] <Electronically signed by Crispin Silva > 08/08/20 [id number]
== END ==
LOC: M ST 12:56
PROVIDERS: ATTEND Family Medicine
DX: R13.10 Dysphagia, unspecified (principal)

== ENCOUNTER → 2020-08-25 | Outpatient (REF) | payer MEDICARE, MEDICAID ==
[2020-08-25 12:51] LABS: BASO % 0.6 % (0.0-1.0); EOS # 0.1 10^3/uL (0.0-0.5); EOS % 1.6 % (0.0-3.0); HEMATOCRIT 40.6 % (42.0-52.0); LYMPH # 1.1 10^3/uL (1.5-5.0); LYMPH % 22.8 % (24.0-44.0); MEAN CORPUSCULAR HEMOGLOBIN 31.1 pg (27.0-33.0); MEAN CORPUSCULAR VOLUME 97.1 fl (80.0-96.0); MONO # 0.3 10^3/uL (0.0-0.8); MONO % 5.3 % (2.0-8.0); NEUTROPHILS # 3.4 10^3/uL (1.5-8.5); NEUTROPHILS % 69.3 % (36.0-66.0); PLATELET COUNT, AUTOMATED 257 10^3/uL (150-450); RED BLOOD COUNT 4.18 10^6/uL (4.30-6.10); WHITE BLOOD COUNT 4.9 10^3/uL (4.0-10.0)
[2020-08-25 13:18] LABS: ALBUMIN 3.7 GM/DL (3.2-5.2); ALT/SGPT 22 U/L (12-78); BILIRUBIN,TOTAL 0.3 MG/DL (0.2-1.0); BLOOD UREA NITROGEN 14 MG/DL (7-18); CALCIUM LEVEL 9.3 MG/DL (8.8-10.2); CARBON DIOXIDE LEVEL 30 MEQ/L (21-32); CHLORIDE LEVEL 108 MEQ/L (98-107); CHOLESTEROL LEVEL 155 MG/DL (<200); CHOLESTEROL RISK RATIO 3.369 (<5); CREATININE FOR GFR 0.78 MG/DL (0.70-1.30); GLOMERULAR FILTRATION RATE > 60.0 (>49); GLUCOSE, FASTING 99 MG/DL (70-100); HDL CHOLESTEROL 46 MG/DL (>40); LDL CHOLESTEROL 78 MG/DL (<100); NON-HDL-C 109 MG/DL; POTASSIUM SERUM 4.7 MEQ/L (3.5-5.1); SODIUM LEVEL 140 MEQ/L (136-145); TOTAL PROTEIN 7.2 GM/DL (6.4-8.2); TRIGLYCERIDES LEVEL 156 MG/DL (<150)
[2020-08-25 13:54] LABS: HEMOGLOBIN A1c 5.6 %
[2020-08-25 14:45] LABS: PROLACTIN 7.9 NG/ML (2.1-17.7)
== END ==
LOC: M LABDRWAD 12:24
PROVIDERS: ATTEND Physician Assistant
DX: Z79.899 Other long term (current) drug therapy (principal)

== ENCOUNTER → 2021-07-23 | Outpatient (CLI) | payer MEDICARE, MEDICAID ==
[~2021-07-23] MED LIST changes: +CEPH500C PO
[2021-07-23 13:09] LABS: BASO % 0.5 % (0.0-1.0); EOS # 0.1 10^3/uL (0.0-0.5); EOS % 1.1 % (0.0-3.0); HEMATOCRIT 39.3 % (42.0-52.0); HEMOGLOBIN 12.8 g/dl (13.5-17.5); LYMPH # 1.3 10^3/uL (1.5-5.0); LYMPH % 19.2 % (24.0-44.0); MEAN CORPUSCULAR HEMOGLOBIN 31.4 pg (27.0-33.0); MEAN CORPUSCULAR HGB CONC 32.6 g/dl (32.0-36.5); MEAN CORPUSCULAR VOLUME 96.6 fl (80.0-96.0); MONO # 0.3 10^3/uL (0.0-0.8); MONO % 4.7 % (2.0-8.0); NEUTROPHILS # 4.9 10^3/uL (1.5-8.5); NEUTROPHILS % 73.9 % (36.0-66.0); PLATELET COUNT, AUTOMATED 261 10^3/uL (150-450); RED BLOOD COUNT 4.07 10^6/uL (4.30-6.10); WHITE BLOOD COUNT 6.6 10^3/uL (4.0-10.0)
[2021-07-23 13:18] LABS: ALBUMIN 3.8 GM/DL (3.2-5.2); ALT/SGPT 25 U/L (12-78); BILIRUBIN,TOTAL 0.4 MG/DL (0.2-1.0); BLOOD UREA NITROGEN 13 MG/DL (7-18); CALCIUM LEVEL 9.5 MG/DL (8.8-10.2); CARBON DIOXIDE LEVEL 33 MEQ/L (21-32); CHLORIDE LEVEL 105 MEQ/L (98-107); CHOLESTEROL LEVEL 144 MG/DL (<200); CHOLESTEROL RISK RATIO 2.716 (<5); CREATININE FOR GFR 0.81 MG/DL (0.70-1.30); GLOMERULAR FILTRATION RATE > 60.0 (>49); GLUCOSE, FASTING 99 MG/DL (70-100); HDL CHOLESTEROL 53 MG/DL (>40); LDL CHOLESTEROL 62 MG/DL (<100); NON-HDL-C 91 MG/DL; POTASSIUM SERUM 4.4 MEQ/L (3.5-5.1); SODIUM LEVEL 142 MEQ/L (136-145); TOTAL PROTEIN 7.2 GM/DL (6.4-8.2); TRIGLYCERIDES LEVEL 147 MG/DL (<150)
[2021-07-23 15:43] LABS: HEMOGLOBIN A1c 5.2 %
== END ==
LOC: M ADAMS 08:15
PROVIDERS: ATTEND Physician Assistant
DX: Z79.899 Other long term (current) drug therapy (principal)

== ENCOUNTER → 2022-01-18 | Outpatient (REF) | LOC: M LAB 08:44 ==